=== PATIENT | female | born 1975 | race Caucasian/White ===

== ENCOUNTER 2017-06-23 07:01 | Outpatient (CLI) | payer MEDICARE ==
--- NOTE | 2017-06-23 13:27 | CT ---
CT ABDOMEN AND PELVIS WITH CONTRAST: Comparison: None. History: Mass in right lower quadrant of the abdomen. Technique: Multiple contiguous axial images were obtained in a CT of the abdomen and pelvis with con trast. PO contrast was administered. Sagittal and coronal reformats were performed. FINDINGS: The uterus is enlarged. There is a large exophytic fibroid extending off the aspect of the uterus in to the pelvis. This measures 9.4 cm in greatest dimension. No free air, free fluid, or stranding eduardo nges are seen in the abdomen or pelvis. The liver, gallbladder, kidneys, adrenal glands, spleen, and pancreas are unremarkable. The large an d small bowel are unremarkable. No abdominal or pelvic lymphadenopathy are seen. The osseous structures, abdominal wall soft tissues, and visualized inferior thorax are unremarkable . IMPRESSION: Large uterine fibroids extends from the uterus into the right lower quadrant of the abdomen/pelvis. This likely represents the patient's palpable abnormality. POS: SUNNY
== END 2017-06-23 07:02 | disposition home or self-care (01) ==
LOC: BURCT 07:01
PROVIDERS: ATTEND Family Medicine
DX: R19.03 Right lower quadrant abdominal swelling, mass and lump (principal); D25.9 Leiomyoma of uterus, unspecified
CPT/HCPCS: 74177

== ENCOUNTER 2018-01-07 08:31 | Emergency (ER) | payer MEDICARE, MEDICAID ==
[2018-01-07 09:15] LABS: #Basophils 0.1 thou/uL (0.0-0.2); #Eosinphils 0.1 thou/uL (0.0-0.7); #Lymphocytes 1.8 thou/uL (1.20-3.40); #Monocytes 0.5 thou/uL (0.11-0.59); #Neutrophils 5.1 thou/uL (1.40-6.50); %Basophils 1.4 % (0.0-1.0); %Eosinophils 1.8 % (0.0-10.0); %Lymphocytes 24.1 % (21.0-51.0); %Monocytes 5.9 % (0.0-10.0); %Neutrophils 66.9 % (42.0-75.0); Hemoglobin 8.5 g/dL (12.0-16.0); Mean Corpuscular HGB CONC 33.1 g/dL (32.0-36.0); Mean Corpuscular Hemoglobin 25.2 pg (27.0-31.0); Mean Corpuscular Volume 76.3 fl (81.0-99.0); Mean Platelet Volume 6.5 fL (7.4-10.4); Platelet Count 312 thou/uL (130-400); RBC Distribution Width 14.7 % (11.5-14.5); Red Blood Cell (RBC) Count 3.38 mill/uL (4.20-5.40); White Blood Cell (WBC) Count 7.6 thou/uL (4.8-10.8)
[2018-01-07 09:31] LABS: ALT (SGPT) 16 U/L (8-55); AST (SGOT) 22 U/L (5-34); Albumin 3.9 g/dL (3.5-5.0); Alkaline Phosphatase 61 U/L (40-150); Anion Gap 16 mmol/L (10-20); BUN (Urea Nitrogen) 6 mg/dL (7.0-18.7); Bilirubin, Total 0.8 mg/dL (0.2-1.2); Calc. Creatinine Clearance 0 mL/min (70-130); Calcium 8.6 mg/dL (7.8-10.44); Carbon Dioxide 21 mmol/L (22-29); Chloride 106 mmol/L (98-107); Estimated GFR-MDRD 84; Globulin 2.8 g/dL (2.4-3.5); Glucose 142 mg/dL (70-105); Potassium 3.1 mmol/L (3.5-5.1); Protein, Total 6.7 g/dL (6.0-8.3); Sodium 140 mmol/L (136-145)
--- NOTE | 2018-01-07 11:39 | CT ---
CT ABDOMEN AND PELVIS WITH CONTRAST: DATE: 01/07/18. FINDINGS: Spiral CT of the abdomen and pelvis was performed for evaluation of post hysterectomy bleeding. Axia l slices were acquired after giving IV contrast. Coronal and sagittal reconstructions were then done . There appears to be active bleeding into the upper vagina with some pooling of contrast here. There is a sizable amount of fluid otherwise within the vaginal vault. In addition, there is a small amoun t of free fluid in the deep pelvis and cul-de-sac; however, no active bleeding is seen here, nor was the amount of unexpected in a patient 1 week post hysterectomy. Elsewhere, the lung bases are clear. The liver, spleen, pancreas, gallbladder, adrenal glands, kidne ys, and abdominal aorta appear normal. No free air was seen in the abdomen. Some of the wall thickness of the colon near the hepatic flexur e was a little increased. This may or may not indicate focal inflammatory change and the significant is unknown. Otherwise, bowel was unremarkable. CT of the pelvis was mainly remarkable for findings listed above. The bony pelvis appears intact as does the lumbar spine. IMPRESSION: 1. Evidence of active bleeding into the upper vagina. Immediate gynecological referral needed. 2. Equivocal thickening of the short segment of colon around the hepatic flexure. Findings and recommendations discussed with Dr. Esquivel at 0954 on 01/07/18. CODE CR POS: HOME
== END 2018-01-07 09:45 | disposition short-term general hospital (02) ==
LOC: BURERS 08:31
DX: N99.820 Postprocedural hemorrhage of a genitourinary system organ or structure following a genitourinary system procedure (principal); E87.5 Hyperkalemia; I10 Essential (primary) hypertension; F32.9 Major depressive disorder, single episode, unspecified; Z79.84 Long term (current) use of oral hypoglycemic drugs; Z79.899 Other long term (current) drug therapy
CPT/HCPCS: 74177; 80053; 85025; 86900; 86901